=== PATIENT | male | born 1990 | race Caucasian/White ===

== ENCOUNTER 2018-12-31 20:15 | Emergency (ER) | payer BC, SELFPAY ==
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
[2018-12-31 20:35] VITALS: PULSE 112; RESP 20; TEMP 37.4; O2SAT 98
[2018-12-31] MEDS: Lactated Ringers 1,000 ML 1000 ML IV (21:00)
[2018-12-31] MEDS: Lactated Ringers 1,000 ML 200 ML IV (21:25)
[2018-12-31] MEDS: MORPHine 10 MG/ML VIAL (21:25)
[2018-12-31 22:27] VITALS: PULSE 110; PULSE 117; RESP 18; RESP 20; TEMP 36.4; O2SAT 98
== END 2018-12-31 21:47 | disposition short-term general hospital (02) ==
PROVIDERS: Emergency Provider Emergency Medicine
DX: T22.232A Burn of second degree of left upper arm, initial encounter (principal); T20.10XA Burn of first degree of head, face, and neck, unspecified site, initial encounter; T31.0 Burns involving less than 10% of body surface; X14.1XXA Other contact with hot air and other hot gases, initial encounter
CPT/HCPCS: 16020; 90471; 96374; 96376; J2270

== ENCOUNTER 2019-10-29 12:09 | Emergency (ER) | payer BC, SELFPAY ==
[2019-10-29 12:13] VITALS: BP 135/87; PULSE 82; RESP 18; O2SAT 97
--- NOTE | 2019-10-29 12:19 | ED.GENADUL_ITS ---
Discharge Plan Disposition Patient Disposition: HOME Condition: Stable Discharge Details Chief Complaint: Orthopedic Clinical Impression: Left ankle sprain Primary Care Provider: None,None ED Provider: Nani Moss Home Meds and New Rx's Prescriptions: No Action No Known Home Meds RF: 0 Discharge Instructions Instructions: Ankle Sprain (ED) Additional Instructions: Rest, ice, and elevate the affected area as much as possible. Alternate tylenol and motrin as needed and directed for pain. Call the orthopedist today or Friday morning to schedule a follow-up appointment for reevaluation within the next 2 weeks. Return to the emergency department if you develop any worsening or new concerning symptoms. Stand Alone Forms: Work Release Referrals: Kai Doran MD [ [facility] STAFF PHYSICIAN] - Discharge Data Discharge Date/Time-TO BE ENTERED AT DEPARTURE: 10/29/19 14:02 Discharge Physician: Nani Moss Medical Decision Making 29-year-old male presents with left ankle pain after twisting injury 1 week ago. Patient states he has a previous history of ankle ligamentous injury denies any previous ankle surgery. There is ecchymosis and tenderness noted to left anterior and lateral malleolus. There is also ecchymosis near base of toes but this is nontender and suspect this is traveling due to gravity. Neurovascular intact. No deformity noted. X-ray obtained and note possible fracture tip of fibula. Will obtain ct of ankle. CT reviewed with radiology which notes questionable fracture of ossicle of distal fibula. This was discussed with orthopedics who stated that the ossicle is sequelae of previous ankle sprain and that ct finding result of another ankle sprain. Recommends walking boot and follow-up in the office. Pt placed on orthopedic follow up list. Usual and customary return precautions given prior to discharge. Medical Records Medical records reviewed: Yes I reviewed the patient's medical records. Imaging Data Radiologic Study: Radiologist's impression: XR ANKLE AND FOOT LT COMPLETE CLINICAL HISTORY: twisted ankle, bruising anterior, r/o fracture TECHNIQUE: COMPARISON: XR FOOT LT COMPLETE from 10/29/2019 FINDINGS: Three views of the ankle and three views of the foot were obtained. There is soft tissue swelling of the ankle particularly adjacent to the lateral malleolus. There is an osteophyte of the tip of the fibula. This is not ideally visualized on the films obtained. Possible lucency projected through the base of the osteophyte could represent an osteophyte fracture. Otherwise the bones appear intact. The ankle mortise appears well maintained. IMPRESSION: Possible osteophyte fracture of the tip of the fibula. No other significant findings. CT LOWER EXTREMITY LT WO CLINICAL HISTORY: r/o possible osteophyte fx tip of fibula FINDINGS: CT examination of the ankle was performed to evaluate questionable findings of the tip of the fibula seen on today's radiographs. There appears to be an accessory ossicle of the tip of the fibula, this ossicle has a well corticated border adjacent to the fibula. However there are sharp lucencies projected through the body of the accessory ossicle which appear to represent a fractured ossicle. There is considerable soft tissue swelling adjacent to the presumed fractured ossicle with a small fluid collection present at this site, presumably a hematoma. The ankle mortise is well maintained. Tiny bony chip is present at the an teromedial aspect of the talar dome, this is of uncertain age. Additionally there is a tiny calcific or ossific fragment measuring about 1 millimeter which lies adjacent to the lateral aspect of the tibiotalar joint. This is unlikely to represent an acute injury. IMPRESSION: Apparent fractured accessory ossicle of the tip of the fibula. HPI General Mode of arrival: ambulatory . Date/Time Provider Initiated Documentation: 10/29/19 12:11 . Limitations to Documentation: no limitations . Information obtained by: patient . HPI Narrative: Patient is a 29-year-old male presents with left ankle pain after twisting his ankle 1 week ago. Patient states he was running when he inverted his left ankle. He initially had pain around his left ankle and then developed bruising which then spread to his toes. He denies any pain within his toes. He has been taking ibuprofen with some relief. He denies any knee or upper leg pain. Related Data Home Medications Medication Instructions Recorded Confirmed Unknown [No Known Home Meds] 10/29/19 10/29/19 Allergies Allergy/AdvReac Type Severity Reaction Status Date / Time No Known Allergies Allergy Unverified 10/29/19 12:19 General CHRISTOPHER: 2 Review of Systems All systems reviewed & are unremarkable except as noted in HPI and below PFSH Social History Smoking/Tobacco Use Status: Never Alcohol Intake: current Alcohol Intake frequency: a few times a month Drug use: Never Substance use type: does not use Do you feel safe at home: Yes Do you feel safe in your relationship?: Yes Exam Const General: cooperative, healthy appearing and no acute distress HENMT Head: normal to inspection Mouth: oral mucosae normal Eyes General: appearance normal, both eyes and all related structures Neck Neck: normal visual inspection Resp Effort & Inspection: normal respiratory effort and able to speak in complete sentences Cardio Rate: regular rate Skin General skin exam: no rashes or lesions noted Neuro General: patient alert, patient awake and patient oriented x3 Motor: muscle tone normal throughout Extrem Ankle/foot/toe images: 1. Ecchymosis and tenderness to palpation of left anterior ankle. No deformity noted. No open wounds noted. 2. Ecchymosis noted at base of toes 2 through 4. Other: Tenderness to palpation of left lateral malleolus. No medial malleolus tenderness. Left DP/PT pulses intact. Psych Appearance: grossly normal Affect: normal affect
--- NOTE | 2019-10-29 12:42 | DI.RAD_ITS ---
EXAM: XR ANKLE LT COMPLETE CLINICAL HISTORY: twisted ankle, bruising anterior, r/o fracture TECHNIQUE: COMPARISON: XR FOOT LT COMPLETE from 10/29/2019 FINDINGS: Three views of the ankle and three views of the foot were obtained. There is soft tissue swelling of the ankle particularly adjacent to the lateral malleolus. There is an osteophyte of the tip of the fibula. This is not ideally visualized on the films obtained. Possible lucency projected through th e base of the osteophyte could represent an osteophyte fracture. Otherwise the bones appear intact. The ankle mortise appears well maintained. IMPRESSION: Possible osteophyte fracture of the tip of the fibula. No other significant findings.
--- NOTE | 2019-10-29 12:45 | DI.CT_ITS ---
EXAM: CT LOWER EXTREMITY LT WO CLINICAL HISTORY: r/o possible osteophyte fx tip of fibula FINDINGS: CT examination of the ankle was performed to evaluate questionable findings of the tip of the fibula seen on today's radiographs. There appears to be an accessory ossicle of the tip of the fibula, this ossicle has a well corticated border adjacent to the fibula. However there are sharp lucencies proj ected through the body of the accessory ossicle which appear to represent a fractured ossicle. There is considerable soft tissue swelling adjacent to the presumed fractured ossicle with a small fluid c ollection present at this site, presumably a hematoma. The ankle mortise is well maintained. Tiny bony chip is present at the anteromedial aspect of the ta lar dome, this is of uncertain age. Additionally there is a tiny calcific or ossific fragment measur ing about 1 millimeter which lies adjacent to the lateral aspect of the tibiotalar joint. This is un likely to represent an acute injury. IMPRESSION: Apparent fractured accessory ossicle of the tip of the fibula.
--- NOTE | 2019-10-29 13:54 | NUR.NOTE ---
faxed referral over to ortho for left ankle sprain. 10/29/2019 Nursing Note:
--- NOTE | 2019-10-29 14:01 | NUR.NOTE ---
Nursing Note: Walking boot applied to injured left lower extremity prior to DC.
== END 2019-10-29 14:02 | disposition home or self-care (01) ==
PROVIDERS: Emergency Provider Physician Assistant
DX: S93.402A Sprain of unspecified ligament of left ankle, initial encounter (principal); X50.9XXA Other and unspecified overexertion or strenuous movements or postures, initial encounter; Y93.02 Activity, running
CPT/HCPCS: 29505; 99284; 73610; 73630; 73700; L4361